=== PATIENT | female | born 1975 | race Caucasian/White ===

== ENCOUNTER 2018-03-13 03:22 | Emergency (ER) | END 2018-03-13 05:12 | disposition home or self-care (01) ==

== ENCOUNTER 2018-12-25 11:01 | Emergency (ER) | payer MEDICAID ==
[~2018-12-25] VITALS: Ht 152.4 cm; Wt 90.2 kg
[~2018-12-25 11:01] MED LIST: IBUP-1542 PO; NPH10OT LEFT EAR
[2018-12-25 11:07] VITALS: BP 134/65; PULSE 82; RESP 18; Ht 152.4 cm; Wt 90.2 kg
[2018-12-25] MEDS ORDERED: KETOROLAC 60 MG INJ IM STA (13:30)
[2018-12-25] MEDS ORDERED: TRAM50TA2 PO (14:02)
[2018-12-25] MEDS ORDERED: CYCL10TA7 PO (14:02)
--- NOTE | 2018-12-25 14:10 | ERD ---
ER Documentation Chief Complaint Chief Complaint back pain x 5 days HPI 43-year-old female presents with lower back pain for last few days. Started after awkward movement while cooking. She denies any fall or significant trauma. Pain started after pulling some items out of the stove. Denies any fevers, urinary complaints, cough, shortness of breath or chest pain. Pain is in the L2-L3 area. Patient denies any previous back conditions. ROS All systems reviewed and are negative except as per history of present illness. Medications Home Meds Active Scripts Cyclobenzaprine Hcl* (Cyclobenzaprine Hcl*) 10 Mg Tablet, 10 MG PO TID, #15 TAB Prov:LEON MARS MD 12/25/18 Tramadol HCl (Tramadol HCl) 50 Mg Tablet, 50 MG PO Q4 PRN for PAIN, #15 TAB Prov:LEON MARS MD 12/25/18 Neomycin/Polymyxin/Hydrocort* (Cortisporin* Otic) 10 Ml Susp, 4 DROP LEFT EAR QID for 7 Days, EA Prov:REGINALD BOSE NP 03/13/18 Ibuprofen* (Motrin*) 600 Mg Tab, 600 MG PO Q6 PRN for PAIN, #14 TAB Prov:FARAZ ZAVALA DO 04/17/15 Allergies Allergies: Coded Allergies: Penicillins (Verified Allergy, Mild, 12/25/18) PMhx/Soc History of Surgery: Yes (caesarian section x3) Anesthesia Reaction: No Hx Neurological Disorder: No Hx Respiratory Disorders: No Hx Cardiac Disorders: No Hx Psychiatric Problems: No Hx Miscellaneous Medical Probl: No Hx Alcohol Use: No Hx Substance Use: No Hx Tobacco Use: No FmHx Family History: No diabetes, No coronary disease, No other Physical Exam Vitals Vital Signs Date Temp Pulse Resp B/P (MAP) Pulse Ox O2 O2 Flow FiO2 Time Delivery Rate 12/25/18 99.3 82 18 134/65 98 11:07 (88) Physical Exam Const: No acute distress Head: Atraumatic Eyes: Normal Conjunctiva ENT: Normal External Ears, Nose and Mouth. Neck: Full range of motion. No meningismus. Resp: Clear to auscultation bilaterally Cardio: Regular rate and rhythm, no murmurs Abd: Soft, non tender, non distended. Normal bowel sounds Skin: No petechiae or rashes Back: No midline or flank tenderness. Mild tenderness L2-L3 paraspinous muscles. No midline tenderness or deformities. Ext: No cyanosis, or edema Neur: Awake and alert with normal gait. No appreciable focal neurologic deficits. Psych: Normal Mood and Affect Results 24 hrs Laboratory Tests Test 12/25/18 13:44 POC Beta HCG, Qualitative NEGATIVE Current Medications Medications Dose Sig/Chintan Start Time Status Last (Trade) Ordered Route PRN Stop Time Admin Dose Reason Admin Ketorolac 60 mg ONCE STAT 12/25/18 DC 12/25/18 Tromethamine IM 13:30 13:50 (Toradol) 12/25/18 13:31 Procedures/MDM Patient presents with low back pain after awkward movement. Mechanism does not suggest fracture, dislocation of the no signs of neurologic deficit, bacterial infection. Doubt urinary etiology. Patient likely has muscular skeletal strain. Will treat with tramadol, Flexeril, instructions for back exercises, NSAIDs, primary care follow-up and return precautions. Patient was given Toradol here in the ER. The patient was stable with no new complaints during the ER course. Clinically, there is no current evidence to suggest meningitis, sepsis, acute abdomen, pneumonia, stroke, acute coronary syndrome, pulmonary embolism, aortic dissection or any other emergent condition appearing to require further evaluation or hospitalization. Patient counseled regarding my diagnostic impression and care plan. Prior to discharge all questions answered. Pt agrees with treatment plan and understands strict return precautions. Pt is instructed to follow up with primary care provider within 24-48 hours. Precautionary instructions provided including instructions to return to the ER if not improving or for any worsening or changing symptoms or concerns. Departure Diagnosis: Primary Impression: Back pain Back pain location: low back pain Chronicity: unspecified Back pain laterality: unspecified Sciatica presence: unspecified whether sciatica pr esent Qualified Codes: M54.5 - Low back pain Condition: Stable Patient Instructions: Back Exercises, Lumbar, Back Sprain/Strain Referrals: NO PRIMARY,CARE PHYSICIAN (PCP) Additional Instructions: martha ibuprofen 600mg cada 6 horas. . Cheque otro vez con lal doctor primario en el proximo rivas or regresa para mas o nueva simptomas. LEON MARS MD Dec 25, 2018 14:10
== END 2018-12-25 14:22 | disposition home or self-care (01) ==
LOC: FTE 11:01
DX: M54.5 Low back pain (principal)
CPT/HCPCS: 81025; 96372; J1885; Z7502